=== PATIENT | male | born 1975 | race American Indian/Alaskan Native ===

== ENCOUNTER 2017-06-15 06:33 | Day surgery (SDC) | payer BC ==
[2017-06-15] MEDS ORDERED: ECOTRIN PO ONE (06:56)
[2017-06-15] MEDS ORDERED: NACL 0.9% 500 ML 500 ML IV SCH (07:00)
[2017-06-15 07:23] LABS: Basophils % (Auto) 0.6 % (0.0-1.8); Eosinophils % (Auto) 7.1 % (0.0-4.3); Hematocrit 45.2 % (35.5-45.6); Hemoglobin 15.4 gm/dl (11.8-15.2); Mean Corpuscular HGB Conc 34 % (32-34); Mean Corpuscular Hemoglobin 31 pg (28-32); Mean Corpuscular Volume 90 fl (84-94); Platelet Count 203 K/mm3 (140-440); Red Blood Count 5.05 M/mm3 (3.65-5.03); Red Cell Distribution Width 14.1 % (13.2-15.2); White Blood Count 4.5 K/mm3 (4.5-11.0)
[2017-06-15 07:32] LABS: INR 0.94 (0.87-1.13)
[2017-06-15 07:36] LABS: Anion Gap 14 mmol/L; BUN/Creatinine Ratio 14; Blood Urea Nitrogen 11 mg/dL (9-20); Calcium 8.7 mg/dL (8.4-10.2); Carbon Dioxide 30 mmol/L (22-30); Chloride 102.3 mmol/L (98-107); Glucose 91 mg/dL (75-100); Potassium 4.1 mmol/L (3.6-5.0); Sodium 142 mmol/L (137-145)
[2017-06-15] MEDS ORDERED: HEPARIN 10,000 UNITS/10 ML ONE (08:22)
[2017-06-15] MEDS ORDERED: CALAN ONE (08:22)
[2017-06-15] MEDS ORDERED: HEPARIN/NS 5000 UNIT/500ML(CATH LAB) 1,000 ML IR ONE (08:22)
[2017-06-15] MEDS ORDERED: XYLOCAINE 2% INFILTRATI ONE (08:22)
[2017-06-15] MEDS ORDERED: VERSED ONE (08:23)
[2017-06-15] MEDS ORDERED: NITROGLYCERIN SYRINGE 3 ML ONE (08:23)
[2017-06-15] MEDS ORDERED: SUBLIMAZE ONE (08:23)
--- NOTE | 2017-06-15 10:55 | Cardiac Catherization Report ---
CARDIAC CATHETERIZATION REFERRING PHYSICIAN: Maurice Becker MD INDICATION FOR PROCEDURE: The patient is a pleasant 41-year-old -[place] gentleman with elevated coronary calcium score, persistent chest pain. Technically difficult stress test, referred for left heart catheterization. Risks, benefits, potential alternatives explained at length prior to obtaining informed consent. PROCEDURE IN DETAIL: The patient was brought to the wharf labourer in a postabsorptive state, prepped and draped in sterile fashion. Nico's test in right hand was normal. A 2 mL of 2% lidocaine used to anesthetize the right wrist. A standard 6-Pashto hydrophilic sheath used to cannulate the right radial artery via modified Seldinger technique. All exchanges performed to exchange a J-tip guidewire. JL3.5 catheter used to engage left main. No dampening or ventricularization. Cineangiography performed in all projections. JR4 catheter used to cross the aortic valve under fluoroscopic guidance. Left ventriculography performed in 30 [place] and 30 [place] projections via hand injections, catheter flushed. Manual pullback performed with continuous pressure monitoring. Catheter used to engage the right coronary. No dampening or vegetation. Cineangiography performed in all projections. Next, pigtail catheter used to cross the aortic valve under fluoroscopic guidance. LV gram performed with power injector in the MONTENEGRIN and STER[place] projections. Catheter flushed. Manual pullback performed with continuous pressure monitoring. Catheter removed from the body of wire, sheath removed. Manual pressure used to achieve hemostasis. DATA: Aortic pressure is 120/80, LV pressure is 120, LVP of 20 mmHg. 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 This is seen in both the MONT[place]GR[place] and [place] projections. There does not appear to be an intraventricular communication on the MONTENEGRIN projection. CORONARY: This is a right dominant system. Right coronary is a moderate sized vessel, courses AV groove, distally bifurcates in the posterior descending and posterolateral branch, no discrete stenosis identified. Left main without significant disease, bifurcates left anterior descending and left circumflex. Left circumflex is small without significant disease. LAD is a large vessel, courses anterior intergroove, wraps around the apex, no significant disease in LAD or diagonal system. CONCLUSIONS: 1. No angiographic evidence of significant epicardial coronary disease in this right dominant system. 2. Normal left ventricular systolic performance. 3. 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 No evidence of intraventricular communication. 4. Normal LVEDP. 5. No evidence of aortic stenosis. At this point, needs better image of the apex. He had pins placed in his right hip. We will discuss with the MRI department at [facility] to see if he can possibly get a cardiac MRI, if not a cardiac CT would be helpful here. Continue current medications and follow up with me in the office. Results of the procedure were explained at length to the patient. All questions and concerns were addressed. JOB# [id number] TAMI/CHERY
[2017-06-15 12:35] VITALS: BP 142/84
--- NOTE | 2017-06-15 14:24 | Short Stay Summary ---
Short Stay Documentation Date of service: 06/15/17 - History H&P: obtained from office - Allergies and Medications Current Medications: Allergies No Known Allergies Allergy (Verified 06/15/17 06:56) Home Medications Medication Instructions Recorded Confirmed Last Taken Type Aspirin [Lo-Dose Aspirin EC] 81 mg PO DAILY 06/15/17 06/15/17 06/14/17 History Olmesartan/Hydrochlorothiazide 1 tab PO DAILY 06/15/17 06/15/17 06/14/17 History [Olmesartan-Hctz 20-12.5 mg Tab] - Brief post op/procedure progress note Date of procedure: 06/15/17 Pre-op diagnosis: chest pain; elevated calcium score Post-op diagnosis: other (LV apical aneurysm) Procedure: C - see cath report Anesthesia: local Estimated blood loss: none Condition: stable - Disposition Condition at discharge: Stable Disposition: [id number] TO HOME OR SELFCARE - Discharge Diagnoses (1) Left ventricular aneurysm Status: Chronic (2) Chest pain Status: Chronic (3) Elevated coronary artery calcium score Status: Chronic Short Stay Discharge Plan Activity: advance as tolerated Diet: low salt Wound: open to air, keep clean and dry, per your surgeon's advice Follow up with: JIMMY BAILEY MD [Primary Care Provider] - 7 Days VINNY HERNANDEZ MD [Staff Physician] - 7 Days Forms: CardCath PCI D/C Instructions, Work/School Excuse Out Patient
== END 2017-06-15 12:40 | disposition home or self-care (01) ==
LOC: CATHLABREC 06:33
PROVIDERS: ATTEND Internal Medicine
DX: R07.89 Other chest pain (principal); R93.1 Abnormal findings on diagnostic imaging of heart and coronary circulation; I25.3 Aneurysm of heart; I10 Essential (primary) hypertension; Z79.82 Long term (current) use of aspirin; Z82.49 Family history of ischemic heart disease and other diseases of the circulatory system
CPT/HCPCS: 36415; 80048; 85025; 85610; 85730; 93005; 93010; 93458; 99156; 99157; C1894; J1644; J2250; J3010; J7040; Q9967